=== PATIENT | male | born 1955 | race Caucasian/White ===

== ENCOUNTER 2023-10-26 07:57 | Day surgery (SDC) | payer OTHER ==
[2023-10-26] MEDS ORDERED: Nitroglycerin 50 MG/250 ML BOT 250 ML ONE (08:09)
[2023-10-26] MEDS ORDERED: Heparin 10,000 UNITS/ 10 ML VIAL ONE ×2 (08:09→08:10)
[2023-10-26] MEDS ORDERED: Verapamil 5 MG/2 ML VIAL ONE (08:09)
[2023-10-26 08:54] VITALS: BP 148/83; TEMP 98
[2023-10-26] MEDS ORDERED: Iopamidol 300 61% 100 ML VIAL FS ONE (09:20)
[2023-10-26] MEDS ORDERED: Aspirin 325 MG TAB ONE (09:25)
[2023-10-26] MEDS ORDERED: Diazepam 5 MG TAB ONE (09:25)
[2023-10-26] MEDS ORDERED: TICAGRELOR 90 MG TABLET ONE (09:26)
[2023-10-26 09:40] LABS: #Basophils 0.06 10x3/uL (0.0-0.2); #Eosinphils 0.13 10x3/uL (0.0-0.5); #Monocytes 0.71 10x3/uL (0.0-1.1); #Neutrophils 3.58 10x3/uL (1.5-8.4); %Basophils 0.9 % (0.0-2.0); %Eosinophils 2.1 % (0.0-6.0); %Lymphocytes 28.5 % (18.0-47.0); %Monocytes 11.2 % (0.0-10.0); %Neutrophils 56.5 % (40.0-75.0); Hematocrit 44.7 % (38.8-50.0); Hemoglobin 15.7 g/dL (13.5-17.5); Mean Corpuscular HGB CONC 35.1 g/dL (32.0-36.0); Mean Corpuscular Hemoglobin 32.8 pg (27.0-33.0); Mean Corpuscular Volume 93.5 fL (81.2-95.1); Mean Platelet Volume 9.6 fL (7.4-10.4); Platelet Count 197 10x3/uL (150-450); RBC Distribution Width 12.7 % (11.5-14.5); Red Blood Cell (RBC) Count 4.78 10x6/uL (4.32-5.72); White Blood Cell (WBC) Count 6.3 10x3/uL (3.5-10.5)
[2023-10-26 09:48] LABS: INR-International Normal Ratio 0.9; Prothrombin Time 10.3 sec (9.5-12.1)
[2023-10-26 09:51] LABS: ALT (SGPT) 53 U/L (8-55); AST (SGOT) 46 U/L (5-34); Alkaline Phosphatase 79 U/L (40-110); Anion Gap 16 mmol/L (10-20); BUN (Urea Nitrogen) 8 mg/dL (8.4-25.7); Calc. Creatinine Clearance 128 mL/min (70-130); Carbon Dioxide 23 mmol/L (23-31); Chloride 104 mmol/L (98-107); Estimated GFR 98; Globulin 3.6 g/dL (2.4-3.5); Glucose 93 mg/dL (80-115); Potassium 3.4 mmol/L (3.5-5.1); Protein, Total 7.6 g/dL (5.8-8.1); Sodium 140 mmol/L (136-145)
[2023-10-26] MEDS ORDERED: Lidocaine 1% (PF) 30 ML VIAL ONE (10:16)
[2023-10-26] MEDS ORDERED: fentaNYL 50 mcg/mL 1 mL Vial ONE ×2 (10:17→11:58)
[2023-10-26] MEDS ORDERED: Midazolam HCl 2 mg/2 ml Vial ONE ×2 (10:17→10:38)
[2023-10-26] MEDS ORDERED: PHENYLEPHRINE-NS 100 MCG/ML 10 ML SYRINGE ONE (10:48)
[2023-10-26] MEDS ORDERED: Atropine Sulfate 1 mg/1 ml Vial ONE (10:49)
[2023-10-26 11:46] LABS: Cardiac Risk 2.7 (Less than 4.5)
== END 2023-10-26 16:40 | disposition home or self-care (01) ==
LOC: CSHSDC 07:57
PROVIDERS: ATTEND Specialist
PROC: 4A023N8 Measurement of Cardiac Sampling and Pressure, Bilateral, Percutaneous Approach (ICD-10-PCS; principal; 2023-10-26)
PROC: B216YZZ Fluoroscopy of Right and Left Heart using Other Contrast (ICD-10-PCS; principal; 2023-10-26)
PROC: B212YZZ Fluoroscopy of Single Coronary Artery Bypass Graft using Other Contrast (ICD-10-PCS; principal; 2023-10-26)
PROC: 05HY33Z Insertion of Infusion Device into Upper Vein, Percutaneous Approach (ICD-10-PCS; principal; 2023-10-26)
DX: I25.84 Coronary atherosclerosis due to calcified coronary lesion (principal); I25.10 Atherosclerotic heart disease of native coronary artery without angina pectoris; I10 Essential (primary) hypertension; E78.5 Hyperlipidemia, unspecified; I49.3 Ventricular premature depolarization; R07.9 Chest pain, unspecified; K21.9 Gastro-esophageal reflux disease without esophagitis; R55 Syncope and collapse; R78.5 Finding of other psychotropic drug in blood; Z79.82 Long term (current) use of aspirin; Z79.899 Other long term (current) drug therapy
CPT/HCPCS: 36556; 80053; 80061; 85025; 85347; 85610; 85730; 92933; 92972; 93454; 99152; 99153; C1725; C1760; C1761; C1769; C1874; C1887; C9602; J0461; J1644; J2001; J2250; J3010; Q9967